=== PATIENT | female | born 2005 | race Caucasian/White ===

== ENCOUNTER 2024-10-17 06:27 | Observation (INO) ==
--- NOTE | 2024-10-17 07:28 | Emergency Department Note ---
Impression & Plan Acute tonsillitis, Leukocytosis ED Provider Note HISTORY OF PRESENT ILLNESS: Patient is a 18-year-old female presenting with sore throat and fever. Patient reports she is "really sick" and has been for the last 48 hours. Reports a sore throat, nausea and vomiting and generalized bodyaches. Reports her temperatures been up to 103 Fahrenheit. Reports she last took Tylenol around 5 AM. She denies any chest pain or shortness of breath. She states that her throat really hurts and she is unable to swallow. Reports that she is unable to move her neck around secondary to pain in the anterior throat. She denies any recent sick contact exposures. Denies any abdominal pain or dysuria. ROS: as above PHYSICAL EXAM: Constitutional: Patient appears in no acute distress. HENT: Head: Normocephalic and atraumatic. Eyes: EOMI, PERRL Mouth/Throat: Mucous membranes moist. Uvula midline. Posterior oropharynx is erythematous. Patient has bilateral tonsillar hypertrophy with white exudates on the tonsils. Patient is able to move her head left and right, but does complain of fullness in the anterior throat. Neck: Trachea midline. Neck supple. Cardiovascular: Tachycardic with regular rhythm. No murmurs, rubs or gallops. Intact distal pulses. Pulmonary/Chest: No respiratory distress. Breath sounds clear and equal bilaterally. No wheezes or rales. No chest wall tenderness to palpation. Abdominal: Abdomen soft, no tenderness, rebound or guarding. Musculoskeletal: No edema, tenderness or deformity noted. Skin: Warm and dry. No rash, erythema, pallor or cyanosis Psychiatric: Appropriate mood and affect for situation. Neurological: Alert and keenly responsive. CN II-XII grossly intact, moving all extremities equally and fully. MDM: - Vitals signs showed tachycardia. - History obtained via patient. History as above. - Chronic conditions affecting care: none - Differential diagnoses include, but are not limited to: Retropharyngeal abscess; peritonsillar abscess; tonsillar abscess; strep throat; tonsillitis - Order placed for continuous cardiac monitoring. At this time, monitor showed rate of 96 bpm with normal sinus rhythm, per my interpretation. - External medical records reviewed. - Laboratory workup interpreted by myself showed leukocytosis (WBC 16.15) with neutrophil predominance; stable electrolytes; negative hCG; negative Monospot screen - Viral respiratory swab negative - CT soft tissue neck with IV contrast showed enlarged bilateral palatine tonsils consistent with acute tonsillitis. No peritonsillar abscess. Noted to have parapharyngeal edema and tonsillar enlargement resulting in narrowing of the hypopharynx. Also has reactive enlarged bilateral cervical lymph nodes. - Rapid strep negative - Patient became very anxious and started crying while in the emergency department. She was given 0.5 mg of IV Ativan. - Given 1L NS for tachycardia - Given IV Unasyn and 10 mg PO decadron. - Discussion was had with oil field caser about patient's case and need for admission - Hospitalist, Dr. Coleman, consulted for admission - [facility] ASSESSMENT AND PLAN: Diagnosis: acute tonsillitis; leukocytosis Plan: admit Past Med/Surg History Problem List (Updated 10/17/24 @ 10:03 by Alison Parmar MD) Leukocytosis (Acute) Acute tonsillitis (Acute) Social History (Updated 06/12/24 @ 16:50 by Sharmaine Manzo LPN) Smoking Status: Never smoker Preferred Language: Hebrew Feels Safe at Home: Yes Allergies Allergies Allergy/AdvReac Type Severity Reaction Status Date / Time No Known Allergies Allergy Verified 06/12/24 16:49 Home Meds Home Medications Medication Instructions Recorded Confirmed levonorgestrel 17.5 mcg/24 hr (up 1 device intrauterine DIRECTED 06/12/24 06/12/24 to 5 yrs) 19.5mg intrauterine device (Kyleena) sertraline 100 mg tablet (Zoloft) 125 mg PO DAILY 06/12/24 06/12/24 Tylenol 1 tab PO DIRECTED PRN pain/fever 10/17/24 sertraline 25 mg tablet 25 mg PO DAILY 10/17/24 Results & Data (ED) Vital Signs Vital Signs - 24 hr 10/17/24 06:32 10/17/24 09:15 10/17/24 09:23 Temperature 37.3 C Temperature Source Oral Pulse Rate 116 H 93 H Pulse Rate [Apical] 96 H Pulse Rhythm [Apical] Regular Pulse Strength [Apical] Normal Respiratory Rate 18 16 Respiratory Effort / Characteristics Non-Labored Spontaneous Non-Labored Spontaneous Respiratory Depth Normal Normal Respiratory Pattern Regular Blood Pressure 104/65 Blood Pressure [Left Arm] 114/69 Blood Pressure Mean 78 Blood Pressure Mean [Left Arm] 84 Pulse Oximetry 96 99 Oxygen Delivery Method Room Air Room Air Sepsis Recent Fever Within 48 Hours Yes Sepsis New/Unexplained Change in Mental Status No Sepsis Action Taken by Nursing No Action Required Laboratory Data 10/17/24 07:32 10/17/24 07:32 Lab Results 10/17/24 10/17/24 Range/Units 06:42 07:32 WBC 16.15 H (4.8-10.8) K/ul RBC 4.32 (4.20-5.40) M/uL Hgb 10.9 L (12.0-16.0) g/dl Hct 34.2 L (37.0-47.0) % MCV 79.2 L (80.0-100.0) fL MCH 25.2 (25.0-34.0) pg MCHC 31.9 L (32.0-36.0) g/dL RDW Std Deviation 49.4 H (36.4-46.3) fL RDW Coeff of Toña 17.1 H (11.5-14.5) % Plt Count 198 (130-400) K/uL MPV 10.5 (9.4-12.4) fL Immature Gran % (Auto) 0.8 % Neut % (Auto) 82.8 % Lymph % (Auto) 6.7 % [place] % (Auto) 9.5 % Eos % (Auto) 0.0 % Baso % (Auto) 0.2 % Neut # (Auto) 13.36 H (1.40-6.50) K/uL Lymph # (Auto) 1.09 L (1.20-3.40) K/uL [place] # (Auto) 1.54 H (0.11-0.59) K/uL Eos # (Auto) 0.00 (0.00-0.50) K/uL Baso # (Auto) 0.03 (0.00-0.20) K/uL Immature Gran # (Auto) 0.13 (0.01-0.20) K/uL Dohle Bodies 1+ Sodium 136 (136-145) mmol/L Potassium 3.9 (3.5-5.1) mmol/L Chloride 104 (98-107) mmol/L Carbon Dioxide 24 (21-32) mmol/L Anion Gap 8 (3-11) BUN 7 (6-23) mg/dl Creatinine 0.67 (0.6-1.2) mg/dl Est Cr Clr Drug Dosing 147.1 ml/min eGFR 129.04 BUN/Creatinine Ratio 10.4 (10-20) Glucose 102 H (70-99(Fasting)) mg/dl Calcium 9.7 (8.6-10.3) mg/dl Total Bilirubin 0.6 (0.2-1.0) mg/dl AST 13 (13-39) U/L ALT 9 (7-52) U/L Alkaline Phosphatase 78 (34-104) U/L Total Protein 7.3 (6.0-8.3) gm/dl Albumin 4.6 (3.4-5.0) gm/dl Globulin 2.7 (2.5-4.0) gm/dl Albumin/Globulin Ratio 1.7 (0.9-2) HCG, Qual Negative (Negative) Adenovirus (PCR) Not Detected (NotDetected) B. pertussis DNA (PCR) Not Detected (NotDetected) B.parapertussis DNA PCR Not Detected (NotDetected) C. pneumoniae DNA (PCR) Not Detected (NotDetected) Coronavirus OC43 (PCR) Not Detected (NotDetected) Coronavirus HKU1 (PCR) Not Detected (NotDetected) Coronavirus 229E (PCR) Not Detected (NotDetected) SARS-CoV-2 (PCR) Not Detected (NotDetected) Coronavirus NL63 (PCR) Not Detected (NotDetected) Monoscreen Negative (Negative) Human Metapneumovir PCR Not Detected (NotDetected) Influenza Type A (PCR) Not Detected (NotDetected) Influenza Type B (PCR) Not Detected (NotDetected) M. pneumoniae (PCR) Not Detected (NotDetected) Parainfluenza 1 (PCR) Not Detected (NotDetected) Parainfluenza 2 (PCR) Not Detected (NotDetected) Parainfluenza 3 (PCR) Not Detected (NotDetected) Parainfluenza 4 (PCR) Not Detected (NotDetected) RSV (PCR) Not Detected (NotDetected) Entero/Rhino (PCR) Not Detected (NotDetected) Group A Strep (PCR) NOT DETECTED (NotDetected) Administered Medications Discontinued Medications Dexamethasone Sodium Phosphate (DexamethasonePf 10 Mg/Ml Vial) 10 mg PO NOW ONE Stop: 10/17/24 09:02 Last Admin: 10/17/24 09:16 Dose: 10 mg Documented By: RK Sodium Chloride (Nss) 1,000 mls @ 999 mls/hr IV .Q1H1M ONE Stop: 10/17/24 08:01 Last Infusion: 10/17/24 08:29 Dose: Infused Documented By: Admin: 10/17/24 07:37 Dose: 999 mls/hr Documented By: SRJorgito Ampicillin Sodium/Sulbactam Sodium (Unasyn) 3,000 mg in 100 mls @ 200 mls/hr IV NOW STA Stop: 10/17/24 09:30 Last Infusion: 10/17/24 09:49 Dose: Infused Documented By: SRJorgito Admin: 10/17/24 09:16 Dose: 200 mls/hr Documented By: RK Ioversol (Optiray 320 100ml) 92 ml IV ONCE ONE Stop: 10/17/24 08:32 Last Admin: 10/17/24 08:32 Dose: 92 ml Documented By: MELISSA Lorazepam (Lorazepam 2 Mg/1 Ml Vial) 0.25 mg IV NOW STA Stop: 10/17/24 09:02 Last Admin: 10/17/24 09:16 Dose: 0.25 mg Documented By: RK Imaging Data Radiologist's Impression: Soft Tissue Neck CT 10/17/24 07:51 CT OF THE NECK WITH IV CONTRAST CLINICAL HISTORY: neck pain; fever; tonsillar hypertrophy COMPARISON STUDY: No previous studies for comparison. TECHNIQUE: Following IV administration of 92 mL of Optiray, helical axial images of the neck were obtained. Sagittal and coronal reconstructions were viewed. Automated exposure control was utilized for the study. A dose lowering technique was utilized adhering to the principles of ALARA. CT DOSE: 344.59 mGy.cm FINDINGS: Visualized portions of the intracranial contents are unremarkable. Mastoid air cells are clear. There is mild ethmoid sinus thickening. Mucosal hypertrophy within the right nasal cavity is noted. The parotid and submandibular glands are normal. The epiglottis is normal. The adenoids are moderately enlarged and hyperemic. The bilateral palatine tonsils are enlarged and hyperemic consistent with tonsillitis. There is mild parapharyngeal edema. No peritonsillar fluid collection is present. The tonsillar enlargement result in narrowing of the hypopharynx. Enlarged bilateral cervical lymph nodes are present. Index left level 2 lymph node on image 200 [id number] measure 2.3 x 1.7 cm. Major vasculature of the neck is patent. Visualized portions of the lung apices are unremarkable. IMPRESSION: 1. Enlarged hyperemic bilateral palatine tonsils consistent with acute tonsillitis. No peritonsillar abscess. Mild parapharyngeal edema. Tonsillar enlargement results in narrowing of the hypopharynx. 2. Enlarged bilateral cervical lymph nodes which are reactive. ACT 112: Negative or not required by law. Electronically signed by: Willie Dooley M.D. 10/17/2024 9:06 AM Discharge Plan Visit Data Chief Complaint: Sore Throat Stated Complaint: SORE THROAT,103.9 FEVER,VOMITING,CHILLS,FATIGUE ED Provider: Alison Parmar Discharge Problem: Acute tonsillitis, Leukocytosis Forms Stand Alone Forms: Replaced By [facility] Prescriptions Prescriptions: No Action sertraline [Zoloft] 100 mg tablet 125 mg PO DAILY Rx Instructions: take with 25mg to equal 125mg dose Kyleena 17.5 mcg/24 hr (5 yrs) 19.5 mg intrauterine device 1 device intrauterine DIRECTED sertraline 25 mg tablet 25 mg PO DAILY Rx Instructions: take with 100 mg to equal 125mg dose Tylenol 1 tab PO DIRECTED PRN (Reason: pain/fever) Rx Instructions: otc unknown dose Referrals Referrals: [place] [Primary Care Provider] -
[2024-10-17] MEDS: SODIUM CHLORIDE 0.9% 1,000 ML IV ONE (07:37)
[2024-10-17 07:49] LABS: Hematocrit (blood only) 34.2 % (37.0-47.0); Hemoglobin 10.9 g/dl (12.0-16.0); Mean Corpuscular Hemoglobin 25.2 pg (25.0-34.0); Mean Corpuscular Hgb Conc 31.9 g/dL (32.0-36.0); Mean Corpuscular Volume 79.2 fL (80.0-100.0); Mean Platelet Volume 10.5 fL (9.4-12.4); Platelet Count 198 K/uL (130-400); RDW Coefficient of Variation 17.1 % (11.5-14.5); RDW Standard Deviation 49.4 fL (36.4-46.3); Red Blood Count 4.32 M/uL (4.20-5.40); White Blood Count 16.15 K/ul (4.8-10.8)
[2024-10-17 08:06] LABS: Alanine Aminotransferase 9 U/L (7-52); Albumin Globulin Ratio 1.7 (0.9-2); Albumin Level 4.6 gm/dl (3.4-5.0); Alkaline Phosphatase 78 U/L (34-104); Anion Gap 8 (3-11); Aspartate Aminotransferase 13 U/L (13-39); BUN Creatinine Ratio 10.4 (10-20); Bilirubin,Total 0.6 mg/dl (0.2-1.0); Blood Urea Nitrogen 7 mg/dl (6-23); Calcium 9.7 mg/dl (8.6-10.3); Carbon Dioxide 24 mmol/L (21-32); Chloride 104 mmol/L (98-107); Creatinine Clr Calc Pharmacy 147.1 ml/min; Globulin 2.7 gm/dl (2.5-4.0); Glucose 102 mg/dl (70-99(Fasting)); Potassium 3.9 mmol/L (3.5-5.1); Sodium 136 mmol/L (136-145); Total Protein 7.3 gm/dl (6.0-8.3)
[2024-10-17 08:10] LABS: Pregnancy Test, Serum Negative (Negative)
[2024-10-17 08:19] LABS: Basophils # (auto) 0.03 K/uL (0.00-0.20); Basophils % (auto) 0.2 %; Dohle Bodies 1+; Immature Granulocytes # (auto) 0.13 K/uL (0.01-0.20); Immature Granulocytes % (auto) 0.8 %; Lymphocytes # (auto) 1.09 K/uL (1.20-3.40); Lymphocytes % (auto) 6.7 %; Monocytes # (auto) 1.54 K/uL (0.11-0.59); Monocytes % (auto) 9.5 %; Neutrophils # (auto) 13.36 K/uL (1.40-6.50); Neutrophils % (auto) 82.8 %
[2024-10-17 08:23] LABS: Adenovirus PCR Not Detected (NotDetected); Bordetella parapertussis PCR Not Detected (NotDetected); Bordetella pertussis PCR Not Detected (NotDetected); Chlamydia pneumoniae PCR Not Detected (NotDetected); Coronavirus 229E PCR Not Detected (NotDetected); Coronavirus CoV-2 (COVID19)PCR Not Detected (NotDetected); Coronavirus HKU1 PCR Not Detected (NotDetected); Coronavirus NL63 PCR Not Detected (NotDetected); Coronavirus OC43PCR Not Detected (NotDetected); Human Metapneumovirus PCR Not Detected (NotDetected); Influenza A PCR Not Detected (NotDetected); Influenza B PCR Not Detected (NotDetected); Mycoplasma pneumoniae PCR Not Detected (NotDetected); Parainfluenza Virus 1 PCR Not Detected (NotDetected); Parainfluenza Virus 2 PCR Not Detected (NotDetected); Parainfluenza Virus 3 PCR Not Detected (NotDetected); Parainfluenza Virus 4 PCR Not Detected (NotDetected); Respiratory Syncytial VirusPCR Not Detected (NotDetected); Rhinovirus/Enterovirus PCR Not Detected (NotDetected)
[2024-10-17] MEDS: OPTIRAY 320 100ml IV ONE (08:32)
--- NOTE | 2024-10-17 09:08 | CT Scan Report ---
CT OF THE NECK WITH IV CONTRAST CLINICAL HISTORY: neck pain; fever; tonsillar hypertrophy COMPARISON STUDY: No previous studies for comparison. TECHNIQUE: Following IV administration of 92 mL of Optiray, helical axial images of the neck were ob tained. Sagittal and coronal reconstructions were viewed. Automated exposure control was utilized f or the study. A dose lowering technique was utilized adhering to the principles of ALARA. CT DOSE: 344.59 mGy.cm FINDINGS: Visualized portions of the intracranial contents are unremarkable. Mastoid air cells are c lear. There is mild ethmoid sinus thickening. Mucosal hypertrophy within the right nasal cavity is no victor hugo. The parotid and submandibular glands are normal. The epiglottis is normal. The adenoids are mode rately enlarged and hyperemic. The bilateral palatine tonsils are enlarged and hyperemic consistent w ith tonsillitis. There is mild parapharyngeal edema. No peritonsillar fluid collection is present. Th e tonsillar enlargement result in narrowing of the hypopharynx. Enlarged bilateral cervical lymph nod es are present. Index left level 2 lymph node on image 200 [id number] measure 2.3 x 1.7 cm. Major vasculatu re of the neck is patent. Visualized portions of the lung apices are unremarkable. IMPRESSION: 1. Enlarged hyperemic bilateral palatine tonsils consistent with acute tonsillitis. No peritonsillar abscess. Mild parapharyngeal edema. Tonsillar enlargement results in narrowing of the hypopharynx. 2. Enlarged bilateral cervical lymph nodes which are reactive. ACT 112: Negative or not required by law. Electronically signed by: Willie Dooley M.D. 10/17/2024 9:06 AM
[2024-10-17] MEDS: AMPICILLIN/SULBACTAM SOD 3,000 MG/100 ML BAG IV STA (09:16)
[2024-10-17] MEDS: dexAMETHasone**PF** 10 MG/ML VIAL PO ONE (09:16)
[2024-10-17] MEDS: LORazepam 2 MG/1 ML VIAL IV STA (09:16)
--- NOTE | 2024-10-17 12:05 | History & Physical Report ---
Date of Service October 17, 2024 Assessment & Plan (1) Acute tonsillitis: Plan: No evidence of abscess on soft tissue neck CT scan. Continue Unasyn and parenteral steroid therapy. Serial labs (2) Microcytic anemia: Plan: Probably iron deficient from menstruation. Serum iron level pending Plan Hopeful discharge to home within the next day or 2 History of Present Illness Chief Complaint: Sore throat Primary Care Provider: [facility] 18-year-old white female with a very sore throat and voice changes. She is having hard time swallowing. Soft tissue neck CT scan reveals evidence of tonsillitis without abscess. She was given Unasyn and Decadron in the ED. she will continue with intravenous Unasyn and Solu-Medrol. She also has microcytic anemia and is probably iron deficient. Serum iron level is pending. Hopefully she can go home within the next day or 2 Allergies Allergy/AdvReac Type Severity Reaction Status Date / Time No Known Allergies Allergy Verified 06/12/24 16:49 Home Medications Medication Instructions Recorded Confirmed Type levonorgestrel 17.5 mcg/24 hr (up 1 device intrauterine DIRECTED 06/12/24 10/17/24 History to 5 yrs) 19.5mg intrauterine device (Kyleena) sertraline 100 mg tablet (Zoloft) 125 mg PO DAILY 06/12/24 10/17/24 History Tylenol 1 tab PO DIRECTED PRN pain/fever 10/17/24 10/17/24 History sertraline 25 mg tablet 25 mg PO DAILY 10/17/24 10/17/24 History Past Med/Surg History Problem List (Updated 10/17/24 @ 12:04 by Rocky Coleman MD) Microcytic anemia Leukocytosis (Acute) Acute tonsillitis (Acute) Social History (Updated 06/12/24 @ 16:50 by Sharmaine Manzo LPN) Smoking Status: Never smoker Preferred Language: Korean Feels Safe at Home: Yes Review of Systems 2 Review of Systems: Constitutionalno fever or chills ENTno blurred vision, no double vision, no epistaxis. Very sore throat and hurts to swallow Respiratoryno cough, no wheezing, no shortness of breath Cardiacno palpitations, no chest pain, no syncope Rodrigo nausea, vomiting, diarrhea, melena, hematochezia GUno urinary retention, no urinary incontinence, no dysuria, no hematuria Musculoskeletalno joint pain, no muscle tenderness Skinno bruising, no rashes, no pruritus Neurono isolated weakness, no paresthesia, no weakness Psychno depression, no anxiety Physical Exam 2 Physical Exam: General-alert and oriented x3, no fever, no chills HEENT-head atraumatic and normocephalic, pupils equal and reactive to light, extraocular muscles intact. Bilateral tonsillitis evident Neck-tender submandibular adenopathy bilaterally. No thyromegaly. Trachea midline Chest-clear to auscultation. No rales, wheezing or rhonchi Cardiac-regular rate and rhythm, normal S1 and S2 Abdomen-normal bowel sounds, no hepatosplenomegaly Extremities-no cyanosis, clubbing, or edema Neuro-cranial nerves II through XII intact, motor and sensory function within normal limits, strength symmetrical, no focal deficits Psych-normal affect, normal mood Results & Data Results & Data Vital Signs (Past 12 Hours) Vital Signs Temp Pulse Pulse Resp BP BP Pulse Ox 10/17/24 11:30 88 19 99/60 L 97 10/17/24 11:00 99 H 18 108/76 97 10/17/24 10:30 107 H 16 106/70 98 10/17/24 10:00 107 H 20 98/61 L 98 10/17/24 09:30 99 H 20 100/60 100 10/17/24 09:23 96 H 16 114/69 99 10/17/24 09:21 96 H 16 114/69 100 10/17/24 09:15 93 H 10/17/24 06:32 37.3 C 116 H 18 104/65 96 O2 Del Method 10/17/24 11:30 Room Air 10/17/24 11:00 Room Air 10/17/24 10:30 Room Air 10/17/24 10:00 Room Air 10/17/24 09:30 Room Air 10/17/24 09:23 Room Air 10/17/24 09:21 Room Air 10/17/24 09:15 10/17/24 06:32 Room Air Laboratory Results 10/17/24 07:32 10/17/24 07:32 Code Status & VTE Plan Code Status Full code PG Care Time/CCT Total # of Minutes Spent Total Time Spent with Patient: Total time spent is greater than 50% in coordination of care (as documented) at patient's floor/unit and/or counseling patient: Coding Level of Care Code 48314 INT INP/OBS CARE MIN Diagnoses Acute tonsillitis J03.90 Microcytic anemia D50.9
[2024-10-17] MEDS ORDERED: ONDANSETRON INJ 2 MG/ML 2 ML VIAL IV PRN (12:27)
[2024-10-17] MEDS ORDERED: methylPREDNISolone 10 mg/mL (For Ped Dose < 7mg) IV SCH (12:27)
[2024-10-17] MEDS ORDERED: ACETAMINOPHEN 1,000 MG/100 ML VIAL IV PRN (12:27)
[2024-10-17 12:55] LABS: Iron < 10 mcg/dl (35-150)
[2024-10-17] MEDS: SODIUM CHLORIDE 0.9% 1,000 ML IV SCH (13:30)
[2024-10-17] MEDS: methylPREDNISolone 40 MG in SYRINGE 0 ML IV SCH (13:30)
[2024-10-17] MEDS: AMPICILLIN/SULBACTAM SOD 3,000 MG/100 ML BAG IV SCH (15:10)
[2024-10-18 08:06] LABS: Basophils # (auto) 0.01 K/uL (0.00-0.20); Basophils % (auto) 0.1 %; Hematocrit (blood only) 31.4 % (37.0-47.0); Immature Granulocytes # (auto) 0.06 K/uL (0.01-0.20); Immature Granulocytes % (auto) 0.6 %; Lymphocytes # (auto) 0.71 K/uL (1.20-3.40); Lymphocytes % (auto) 6.6 %; Mean Corpuscular Hemoglobin 25.5 pg (25.0-34.0); Mean Corpuscular Hgb Conc 31.8 g/dL (32.0-36.0); Mean Corpuscular Volume 80.1 fL (80.0-100.0); Mean Platelet Volume 11.3 fL (9.4-12.4); Monocytes % (auto) 2.8 %; Neutrophils # (auto) 9.69 K/uL (1.40-6.50); Neutrophils % (auto) 89.9 %; Platelet Count 214 K/uL (130-400); RDW Coefficient of Variation 17.2 % (11.5-14.5); RDW Standard Deviation 50.6 fL (36.4-46.3); Red Blood Count 3.92 M/uL (4.20-5.40); White Blood Count 10.77 K/ul (4.8-10.8)
[2024-10-18 08:21] LABS: BUN Creatinine Ratio 22.2 (10-20); Calcium 8.9 mg/dl (8.6-10.3); Creatinine Clr Calc Pharmacy 166.3 ml/min; Potassium 4.1 mmol/L (3.5-5.1)
[2024-10-18] MEDS: SERTRALINE HCL 100 MG TABLET PO SCH (08:24)
[2024-10-18] MEDS: SERTRALINE HCL 50 MG TABLET PO SCH (08:24)
[2024-10-18] MEDS ORDERED: SERTRALINE HCL 100 MG TABLET PO SCH (09:00)
[2024-10-18] MEDS: IRON SUCROSE 400 MG in SODIUM CHLORIDE 0.9% 250 ML IV ONE (10:27)
--- NOTE | 2024-10-18 11:52 | Discharge Summary ---
Discharge Summary Date of Service October 18, 2024 Principal Dx & Hospital Course #1 = Principal Diagnosis (1) Acute tonsillitis: No evidence of abscess on soft tissue neck CT scan. Treated while hospitalized with Unasyn and parenteral steroid therapy. Home on Augmentin for 1 more week along with a prednisone tapering dose. (2) Microcytic anemia: Iron deficiency documented. Parenteral iron replacement today, October 18. O ral iron replacement daily going forward. Plan Home todayOctober 18. Continue Augmentin for 1 week along with a prednisone tapering dose. Continue iron supplementation daily . Follow-up with PCP for consideration of tonsillectomy in the future Admission HPI Per Admitting Provider 18-year-old white female with a very sore throat and voice changes. She is having hard time swallowing. Soft tissue neck CT scan reveals evidence of tonsillitis without abscess. She was given Unasyn and Decadron in the ED. she will continue with intravenous Unasyn and Solu-Medrol. She also has microcytic anemia and is probably iron deficient. Serum iron level is pending. Hopefully she can go home within the next day or 2 Discharge Exam General-alert and oriented x3, no fever, no chills HEENT-head atraumatic and normocephalic, pupils equal and reactive to light, extraocular muscles intact. Bilateral tonsillitis evident Neck-tender submandibular adenopathy bilaterally. No thyromegaly. Trachea midline Chest-clear to auscultation. No rales, wheezing or rhonchi Cardiac-regular rate and rhythm, normal S1 and S2 Abdomen-normal bowel sounds, no hepatosplenomegaly Extremities-no cyanosis, clubbing, or edema Neuro-cranial nerves II through XII intact, motor and sensory function within normal limits, strength symmetrical, no focal deficits Psych-normal affect, normal mood Discharge Plan Discharge Items Patient Disposition: Home - Self-Care Reason For Visit: TONSILLITIS Discharge Diagnosis: Acute tonsillitis, iron deficiency anemia Activity: Resume your previous activity Non-emergency contact: Primary Care Provider Call non-emergency contact if: your symptoms worsen Follow-up/Referrals: [facility] [Primary Care Provider] - Diet: Regular Addtl Attending Provider Instructions: Take Augmentin (amoxicillin/clavulanate) twice daily for 1 week. Take prednisone 10 mg in a tapering dose fashion as directed over the next 6 days. Take an iron supplement daily Pending Studies at Discharge: No Stand-Alone Forms: [facility], Smoking Cessation, Work/School Release Medications and DC Order Prescriptions: New amoxicillin-pot clavulanate 875-125 mg tablet 1 tab PO BID Qty: 14 0RF prednisone 10 mg tablet See Rx Instructions .ROUTE .COMPLEX Qty: 12 0RF Rx Instructions: 10 mg orally 3 times a day for 2 days, then 10 mg twice a day for 2 days, then 10 mg once a day for 2 days, then stop Continued sertraline [Zoloft] 100 mg tablet 125 mg PO DAILY Rx Instructions: take with 25mg to equal 125mg dose filled 09/30/24 60 day supply Kyleena 17.5 mcg/24 hr (5 yrs) 19.5 mg intrauterine device 1 device intrauterine DIRECTED Rx Instructions: unable to verify sertraline 25 mg tablet 25 mg PO DAILY Rx Instructions: take with 100 mg to equal 125mg dose filled 09/30/24 60 day supply Tylenol 1 tab PO DIRECTED PRN (Reason: pain/fever) Rx Instructions: otc unknown dose Discharge Orders: Discharge Order (Routine); Ordered 10/18/24 Ordered By: Rocky Coleman Admission Data Admit Date/Time: 10/17/24 10:50 Attending Provider: Rocky Coleman Admit Provider: Rocky Coleman Primary Care Provider: [facility] Other Providers: Rocky Coleman Hospital Stay Data Consultations 10/17/24 09:59 ED Decision to Admit Stat Diagnostic Imagining Performed 10/17/24 07:51 CT soft tissue neck w con Stat Pending Results Patient Have Any Pending Studies at Discharge: No Discharge Instructions Given to Patient (Per Discharging Provider) Take Augmentin (amoxicillin/clavulanate) twice daily for 1 week. Take predniso ne 10 mg in a tapering dose fashion as directed over the next 6 days. Take an iron supplement daily Total Time Total Time Spent Total Time Spent (In Minutes): 45 minutes Coding Level of Care Code 50885 INP/OBS DISCH >30 MIN Diagnoses Acute tonsillitis J03.90 Microcytic anemia D50.9
[2024-10-18] MEDS: INFLUENZA VACC TS2024-25(6m+)/PF (IIV3) 0.5mL Syr IM ONE (13:18)
== END 2024-10-18 13:48 | disposition home or self-care (01) | DRG 153 ==
LOC: ED 06:27 → INTOOBSV 10:50 → 3W 10:50